=== PATIENT | female | born 1935 | race Caucasian/White ===

== ENCOUNTER 2018-05-04 12:00 | Outpatient (CLI) | payer MEDICARE ==
--- NOTE | 2018-05-04 14:07 | RAD ---
FOUR VIEW SERIES RIGHT GREAT TOE: INDICATION: Cellulitis. FINDINGS: There is soft tissue prominence of the great toe right foot. No underlying acute osseous abnormality is seen. No radiopaque foreign body evident. IMPRESSION: 1. Great toe soft tissue prominence correlative to provided history of cellulitis. 2. No underlying acute osseous abnormality. 3. If there is concern for underlying osteomyelitis, this may be further assessed with 3-phase bone scan or MRI, as clinically necessary. POS: [facility] A
== END 2018-05-04 12:01 | disposition home or self-care (01) ==
LOC: SCSRAD 12:00
PROVIDERS: ATTEND Nurse Practitioner Family
DX: L03.115 Cellulitis of right lower limb (principal)

== ENCOUNTER 2022-03-20 18:06 | Emergency (ER) | payer MEDICARE, OTHER ==
[2022-03-20 19:38] LABS: #Basophils 0.1 thou/uL (0.0-0.2); #Eosinphils 0.3 thou/uL (0.0-0.7); #Lymphocytes 2.8 thou/uL (1.20-3.40); #Monocytes 0.9 thou/uL (0.11-0.59); #Neutrophils 5.4 thou/uL (1.40-6.50); %Basophils 0.7 % (0.0-1.0); %Eosinophils 2.7 % (0.0-10.0); %Monocytes 9.5 % (0.0-10.0); Hemoglobin 12.4 g/dL (12.0-16.0); Mean Corpuscular HGB CONC 33.2 g/dL (32.0-36.0); Mean Platelet Volume 7.6 fL (7.4-10.4); Platelet Count 298 10x3/uL (130-400); RBC Distribution Width 11.3 % (11.5-14.5); Red Blood Cell (RBC) Count 3.64 mill/uL (4.20-5.40); White Blood Cell (WBC) Count 9.4 10x3/uL (4.8-10.8)
[2022-03-20 19:39] LABS: Actual Bicarbonate (HCO3v) 28 mEq/L (22-28); Base Excess 1.7 mEq/L (-2.0 to +3.0); Calcium, Ionized (venous) 1.14 mmol/L (1.16-1.32); Chloride (VBG) 105 mmol/L (98-106); Hemoglobin (Hb) 13.4 g/dL (11.7-16.1); Potassium (VBG) 3.64 mmol/L (3.70-5.30); Sodium 140.6 mmol/L (133-146); pH (venous) 7.36 (7.32-7.43)
[2022-03-20 19:47] LABS: ALT (SGPT) 11 U/L (8-55); AST (SGOT) 13 U/L (5-34); Albumin 3.7 g/dL (3.4-4.8); Alkaline Phosphatase 53 U/L (40-110); Anion Gap 11 mmol/L (10-20); BUN (Urea Nitrogen) 32 mg/dL (9.8-20.1); Bilirubin, Total 0.2 mg/dL (0.2-1.2); Calc. Creatinine Clearance 0 mL/min (70-130); Calcium 9.3 mg/dL (7.8-10.44); Carbon Dioxide 28 mmol/L (23-31); Chloride 107 mmol/L (98-107); Estimated GFR 42; Globulin 2.3 g/dL (2.4-3.5); Glucose 146 mg/dL (83-110); Lipase 287 U/L (8-78); Potassium 3.7 mmol/L (3.5-5.1); Sodium 142 mmol/L (136-145)
[2022-03-20 21:28] LABS: Bilirubin Negative (Negative); Blood, Urine Negative (Negative); Clarity Clear (Clear); Glucose, Urine (Dipstick) Normal (Negative); Ketone, Urine Negative (Negative); Leukocyte Negative Leu/uL (Negative); Nitrite Negative (Negative); Protein, Urine (Dipstick) Negative (Neg-Trace); Specific Gravity, Urine 1.035 (1.002-1.036); Urobilinogen Normal mg/dL (Less than 2)
[2022-03-20] MEDS ORDERED: hydrALAZINE 20 MG/ML VIAL ONE (22:28)
== END 2022-03-20 22:54 | disposition home or self-care (01) ==
LOC: ERS 18:06
DX: R53.1 Weakness (principal); I10 Essential (primary) hypertension; Z79.899 Other long term (current) drug therapy
CPT/HCPCS: 36415; 70450; 71045; 74177; 80053; 81003; 82805; 83605; 83690; 84484; 85025; 93005; J0360